=== PATIENT | male | born 1970 | race Two or more races ===

== ENCOUNTER 2018-12-02 09:20 | Emergency (ER) | payer OTHER ==
[~2018-12-02] VITALS: Ht 160 cm; Wt 72.0 kg
[2018-12-02 09:22] VITALS: BP 138/86
[2018-12-02] MEDS ORDERED: L.E.T SOLUTION TP ONE ×2 (09:51→10:00)
[2018-12-02] MEDS ORDERED: DIPH,PERTUSS(ACELL),TET VAC/PF 0.5 ML IM-VACC ONE ×2 (10:00→10:04)
--- NOTE | 2018-12-02 10:35 | NUR ---
JULIETA JJ AT BEDSIDE TO SUTURE LAC
== END 2018-12-02 10:48 | disposition home or self-care (01) ==
LOC: ED 10:42
DX: S01.511A Laceration without foreign body of lip, initial encounter (principal); W22.8XXA Striking against or struck by other objects, initial encounter; Y93.89 Activity, other specified; Y99.0 Civilian activity done for income or pay; Y92.69 Other specified industrial and construction area as the place of occurrence of the external cause
CPT/HCPCS: 40650; 90471; 90715